=== PATIENT | male | born 1965 | race Caucasian/White ===

== ENCOUNTER 2023-10-25 13:04 | Outpatient (CLI) | payer OTHER, SELFPAY | END 2023-10-25 13:05 | disposition home or self-care (01) | LOC: ANHAUDASC 13:05 | PROVIDERS: PCP Otolaryngology; Visit Provider Otolaryngology | DX: H90.71 Mixed conductive and sensorineural hearing loss, unilateral, right ear, with unrestricted hearing on the contralateral side (principal); H69.91 Unspecified Eustachian tube disorder, right ear; H90.42 Sensorineural hearing loss, unilateral, left ear, with unrestricted hearing on the contralateral side | CPT/HCPCS: 92557; 92567 ==

== ENCOUNTER 2024-01-13 14:10 | Outpatient (CLI) | payer OTHER, SELFPAY ==
--- NOTE | ~2024-01-13 | CT_ITS ---
EXAMINATION: CT sinus wo con DATE: 01/13/2024 14:29 INDICATION: Chronic ethmoidal sinusitis. TECHNIQUE: Computed tomography (CT) of the paranasal sinuses was performed without intravenous contra st. Iterative reconstruction technique was employed. The dose-length product was 428.01 mGy-cm. COMPARISON: None FINDINGS: There is mild mucosal thickening in the frontal and ethmoid sinuses. The sphenoid sinuses a re clear. There is mild mucosal thickening in the maxillary sinuses. The ostiomeatal units are patent . There is rightward deviation of the nasal septum. IMPRESSION: 1. Mild mucosal thickening in the paranasal sinuses. 2. Rightward deviation of the nasal septum. Reviewed, dictated and finalized at location A. PHONE SUPERVISOR
== END 2024-01-13 14:11 | disposition home or self-care (01) ==
LOC: GOSHIMG 14:11
PROVIDERS: PCP Otolaryngology; Visit Provider Otolaryngology
DX: J32.2 Chronic ethmoidal sinusitis (principal); J34.2 Deviated nasal septum
CPT/HCPCS: 70486